=== PATIENT | male | born 1955 | race African-American/Black ===

== ENCOUNTER 2025-03-13 08:20 | Day surgery (SDC) | payer MEDICARE ==
[2025-03-13 08:49] VITALS: BP 185/94; TEMP 99.4
[2025-03-13] MEDS ORDERED: Sodium Bicarbonate 2.5 MEQ/5 ML SDV ONE (08:52)
== END 2025-03-13 09:26 | disposition home or self-care (01) ==
LOC: CSHULT 08:20
PROVIDERS: ATTEND Internal Medicine Hematology & Oncology
DX: E04.1 Nontoxic single thyroid nodule (principal); Z53.9 Procedure and treatment not carried out, unspecified reason; C67.4 Malignant neoplasm of posterior wall of bladder; C61 Malignant neoplasm of prostate; D50.0 Iron deficiency anemia secondary to blood loss (chronic); I10 Essential (primary) hypertension; Z88.6 Allergy status to analgesic agent; Z79.899 Other long term (current) drug therapy
CPT/HCPCS: 10005